=== PATIENT | female | born 1935 | race Caucasian/White ===

== ENCOUNTER → 2016-07-29 | Outpatient (CLI) | payer MEDICARE, BC ==
[~2016-07-29] MED LIST: ASPIRIN PO; CALCIUM 500 + D1 TAB PO; CENTRUM SILVER PO; FOSAMAX PO; LASIX PO; LIPITOR PO; SYNTHROID PO; ZESTORETIC 20/21 TAB PO
--- NOTE | ~2016-07-29 | BD1 ---
[facility] A Service of [facility] & [facility] / [facility] RADIOLOGY TEXT RESULTS PATIENT: CARLA HIGGINS LOCATION: [facility] : 35 UNIT #: [id number] AGE: [address]: RONA CASEY MD SEX: F ORDER DR: [id number] [facility] [address] [place], [place] [address] [id number] O MR#: [id number] Acc #: [id number] NAME: CARLA HIGGINS : 1935 SEX: F STUDY DATE/TIME: 07/29/2016 12:20 UNIT: [facility] ROOM: STUDY DESCRIPTION: BD Dexa Bone Dens 1+ Site Attending Physician: Rona Casey M.D. Referring Physician: Rona Casey M.D. Ordering Physician: Rona Casey M.D. Primary Care Physician: Rona Casey M.D. MEDICAL IMAGING REPORT This report is preliminary unless electronic signature is present EXAM DXA scan. DATE OF EXAM 07/29/2016 HISTORY Status post menopause with no hormone replacement therapy. Osteopenia. Family history of breast carcinoma. Hyperthyroidism with thyroid medication for over 10 years. Hypertension with blood pressure medication for 10 years. Arthritis. FINDINGS Bone mineral density in the lumbar spine from L1 through L4 is 0.809 g/cm2 which is 2.2 standard deviations below the mean when compared to young adult reference population which is characteristic of osteopenia. This is 0.6 standard deviations above the mean when compared to the age-matched population. Compared with 11/25/2011, there has been an increase in bone mineral density in the lumbar spine of 17.7%. Bone mineral density in the left femoral neck was 0.613 g/cm2 which is 2.1 standard deviations below the mean when compared to young adult reference population which is characteristic of osteopenia. This is 0.2 standard deviations above the mean when compared to the age-matched population. Compared with 11/25/2011, there has been a decrease in bone mineral density in the left hip of 3.8%. IMPRESSION Bone mineral density in the lumbar spine and left hip characteristic of osteopenia. Compared with 11/25/2011, there has been an increase in bone mineral density in the lumbar spine and a decrease in bone mineral density in the left hip. [facility] A Service of [facility] RADIOLOGY TEXT RESULTS PATIENT: CARLA HIGGINS LOCATION: [facility] : 35 UNIT #: [id number] AGE: [address]: RONA CASEY MD SEX: F ORDER DR: Dictated by... Jason Santiago M.D. THIS IS AN ELECTRONICALLY VERIFIED REPORT Jason Santiago M.D. at 07/30/2016 8:07 AM SHI/mila TD: 07/29/2016 15:28 JOB #: [id number] MEDICAL IMAGING REPORT Page 1 of 1 COPY
--- NOTE | ~2016-07-29 | MY11 ---
[facility] A Service of [facility] RADIOLOGY TEXT RESULTS PATIENT: CARLA HIGGINS LOCATION: [facility] : 35 UNIT #: [id number] AGE: [address]: RONA CASEY MD SEX: F ORDER DR: [id number] [facility] [address] [place], [place] [address] [id number] O MR#: [id number] Acc #: [id number] NAME: CARLA HIGGINS : 1935 SEX: F STUDY DATE/TIME: 07/29/2016 12:14 UNIT: [facility] ROOM: STUDY DESCRIPTION: MY Mammogram Screening Dig [facility]y Attending Physician: Rona Casey M.D. Referring Physician: Rona Casey M.D. Ordering Physician: Rona Casey M.D. Primary Care Physician: Rona Casey M.D. MEDICAL IMAGING REPORT This report is preliminary unless electronic signature is present EXAM Digital screening mammogram, 07/29/2016. HISTORY 81-year-old woman; positive family history, cousin, premenopausal. Annual screening. COMPARISON Comparison mammograms date to 04/27/2006 with most recent 12/28/2014. FINDINGS Digital imaging of each breast if each breast was completed, utilizing screening protocol. Review includes FDA-approved CAD device. Breast parenchyma is partially fatty replaced and mildly heterogeneous. Subareolar duct prominence and subareolar small nodularity is again noted. Dominance in the right breast is stable. There is no interval-occurring mass. I see no suspicious microcalcifications and no architectural deformity. IMPRESSION Stable benign mammogram. Annual screening recommended. Patients over the age of 40 are entered into a reminder system with target due date for the next mammogram. A result letter will also be sent to the patient. BIRADS: 2 Benign finding. Dictated by... [facility] A Service of [facility] & [facility] RADIOLOGY TEXT RESULTS PATIENT: CARLA HIGGINS LOCATION: [facility] : 35 UNIT #: [id number] AGE: [address]: RONA CASEY MD SEX: F ORDER DR: King Artis M.D. THIS IS AN ELECTRONICALLY VERIFIED REPORT King Artis M.D. at 07/30/2016 8:04 AM Noemi TD: 07/29/2016 15:50 JOB #: [id number] MEDICAL IMAGING REPORT Page 1 of 1 COPY
== END | disposition home or self-care (01) ==
LOC: CWCC 11:50
DX: Z12.31 Encounter for screening mammogram for malignant neoplasm of breast (principal); Z78.0 Asymptomatic menopausal state; Z80.3 Family history of malignant neoplasm of breast; M85.89 Other specified disorders of bone density and structure, multiple sites
CPT/HCPCS: 77080; G0202